=== PATIENT | female | born 1950 | race African-American/Black ===

== ENCOUNTER 2017-05-16 14:37 | Day surgery (SDC) | payer OTHER ==
[~2017-05-16] VITALS: Ht 170.2 cm; Wt 43.8 kg
[~2017-05-16 14:37] MED LIST: BISA10SU75 PR; DOCU-144 PO; HYDR-3498 PO; PANT40TA4 PO
[2017-05-16 15:31] VITALS: Ht 170.2 cm; Wt 43.8 kg
[2017-05-16] MEDS ORDERED: LIDOCAINE 4% SOLUTION 50 ML BTL ONE (15:38)
[2017-05-16 15:39] VITALS: BP 180/72; PULSE 85; RESP 17
[2017-05-16] MEDS ORDERED: TRAMADOL PO (15:41)
--- NOTE | 2017-05-16 16:43 | OPPN ---
Date/Time of Note Date/Time of Note DATE: 05/16/17 TIME: 16:39 Proc Note GI Procedure Date 05/16/17 Indication: screening/surveillance Pre-procedure Diagnosis screening colonoscopy Post-procedure Diagnosis hemorhoids Procedure Performed: Colonoscopy Surgeon see signature line Paper Wrapping Machine Operator none Anesthesia Type: moderate sedation Tourniquet Time none EBL none Transfusion required none Biopsy 1: colon bx Grafts/Implants none Tubes/Drains none Complication(s) none Procedure Description colon bx done hemorrhoids BERNARDO GUERRIER MD May 16, 2017 16:43
[2017-05-16] MEDS ORDERED: MIDAZOLAM 1 MG/ML 2 ML INJ ONE ×3 (16:44→16:45)
[2017-05-16] MEDS ORDERED: FENTAnyl 50 MCG/ML VIAL ONE ×2 (16:44)
--- NOTE | 2017-05-16 16:48 | OPPN ---
Date/Time of Note Date/Time of Note DATE: 05/16/17 TIME: 16:46 Proc Note GI Procedure Date 05/16/17 Indication: diagnostic Pre-procedure Diagnosis abd pain gerd Post-procedure Diagnosis gasatritis gastro jejunostomy Procedure Performed: Endoscopy Surgeon see signature line Upset Operator none Anesthesia Type: moderate sedation Tourniquet Time none EBL none Transfusion required none Biopsy 1: colon bx Biopsy 2: gastric bx Grafts/Implants none Tubes/Drains none Complication(s) none Procedure Description egd done with mac gastritis gastrojejunostomy seen BERNARDO GUERRIER MD May 16, 2017 16:48
[2017-05-16 17:06] VITALS: BP 141/62; RESP 20
--- NOTE | 2017-05-16 19:48 | GILP ---
DATE OF PROCEDURE: 05/16/2017 PROCEDURE: Esophagogastroduodenoscopy. 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 POSTOPERATIVE DIAGNOSES: Patient seems to have a gastrojejunostomy. Diffuse severe gastritis was n oted. Biopsies were done. Also, biopsy was done from the stomach. Also, biopsies were done from the jejunum. DESCRIPTION OF PROCEDURE: After informed written consent was obtained, the patient was asked to lie on the left lateral side, 2 mg Versed and 50 mcg of fentanyl was given as intravenous anesthesia. When the patient became somnolent, the Olympus video upper endoscope was introduced into the orophar ynx, then into the esophagus. Entire esophagus appeared normal with no mucosal abnormality. Endosc ope at this time was advanced into the stomach. Stomach showed evidence of severe erythema occupyin g the entire body of the stomach. There is evidence of gastrojejunostomy noted and the jejunum appe ared normal. Multiple biopsies were obtained to rule out possible sprue. Scope at this time was withdrawn. Biopsy was done from the body of the stomach to rule out H. pylor i infection and the procedure was terminated. PLAN: Recommend Carafate 1 gram 4 times a day. Wait for the pathology report. Dictated By: BERNARDO ROSARIO/BERNARDA Conf#: [id number] DID#: [id number]
--- NOTE | 2017-05-16 19:54 | GILP ---
DATE OF PROCEDURE: 05/16/2017 PROCEDURE: Colonoscopy. PREOPERATIVE DIAGNOSIS: Patient is having a screening colonoscopy, rule out colon polyps, colon mal ignancy. POSTOPERATIVE DIAGNOSES: Minimal internal and minimal external hemorrhoids. Biopsies were done to rule out microscopic colitis. DESCRIPTION OF PROCEDURE: After informed written consent was obtained, the patient was asked to lie on the left lateral side. The patient was given intravenous anesthesia, which included 5 mg Versed and 125 mcg of fentanyl. When the patient became somnolent, Olympus video colonoscope was introduced into the rectum and scop e was advanced all the way to the cecum. Entire colon appeared perfectly normal with no mucosal abn ormality. Biopsies were obtained in a random fashion to rule out microscopic colitis. Endoscope at this time was withdrawn and on the way out, minimal internal and minimal external hemorrhoids were noted and the procedure was terminated. PLAN: Recommend to wait for the pathology report. Dictated By: BERNARDO ROSARIO/BERNARDA Conf#: [id number] DID#: [id number]
== END 2017-05-16 18:06 | disposition home or self-care (01) ==
LOC: GIL 14:37
PROVIDERS: ATTEND Internal Medicine Gastroenterology
DX: Z12.11 Encounter for screening for malignant neoplasm of colon (principal); K64.4 Residual hemorrhoidal skin tags; K29.60 Other gastritis without bleeding
CPT/HCPCS: 43239; 45378; 88305; 88312; J2250; J3010